=== PATIENT | male | born 1980 | race Caucasian/White ===

== ENCOUNTER 2017-01-15 19:06 | Emergency (ER) | payer BC ==
[2017-01-15] MEDS ORDERED: Azithromycin 250 MG Tab PO ONE (19:31)
[2017-01-15] MEDS ORDERED: Ibuprofen 800 MG Tab PO ONE (19:31)
--- NOTE | 2017-01-15 19:39 | EDM.PDOC ---
ED HPI GENERAL MEDICAL PROBLEM - General Chief Complaint: ENT Problem Stated Complaint: PT HAS EAR INFECTION Time Seen by Provider: 01/15/17 19:32 Source of Information: Reports: Patient History Limitations: Reports: No Limitations - History of Present Illness INITIAL COMMENTS - FREE TEXT/NARRATIVE: HISTORY AND PHYSICAL: History of present illness: LC 36-year-old male complaining of right earache 1 day. He has a swollen lymph node below dear. No headache or stiff neck. No fevers chills sweats or shaking chills. Is otherwise asymptomatic [] Review of systems: As per history of present illness and below otherwise all systems reviewed and negative. Past medical history: As per history of present illness and as reviewed below otherwise noncontributory. Surgical history: As per history of present illness and as reviewed below otherwise noncontributory. Social history: No reported history of drug or alcohol abuse. Family history: As per history of present illness and as reviewed below otherwise noncontributory. Physical exam: HEENT: Atraumatic, normocephalic, pupils reactive, negative for conjunctival pallor or scleral icterus, mucous membranes moist, throat clear, neck supple, nontender, trachea midline. Lungs: Clear to auscultation, breath sounds equal bilaterally, chest nontender. Heart: S1S2, regular, negative for clicks, rubs, or JVD. Abdomen: Soft, nondistended, nontender. Negative for masses or hepatosplenomegaly. Negative for costovertebral tenderness. Pelvis: Stable nontender. Genitourinary: Deferred. Rectal: Deferred. Extremities: Atraumatic, negative for cords or calf pain. Neurovascular unremarkable. Neuro: Awake, alert, oriented. Cranial nerves Exam nonfocal. Diagnostics: [] Therapeutics: [Zithromax and ibuprofen] Impression: [Otitis media] Plan: [Signs and symptoms consistent with otitis media in a well-appearing patient with supple neck and a single cervical lymph node infra-auricular. Well- appearing unremarkable vital signs. Zithromax given in ED and prescribed patient take Motrin and Tylenol and follow-up with PCP and ENT as needed. Further work up or treatment indicated he agrees with outpatient follow-up and strict return precautions given Definitive disposition and diagnosis as appropriate pending reevaluation and review of above. Right Ear Pain Score (Numeric/FACES): 3 - Related Data Allergies Allergy/AdvReac Type Severity Reaction Status Date / Time No Known Allergies Allergy Verified 01/15/17 19:23 Home Meds: Home Meds Azithromycin [IJP: Azithromycin] 250 mg PO DAILY #6 tab 01/15/17 [Rx] Past Medical History - Past Health History Medical/Surgical History: Denies Medical/Surgical History Cardiovascular History: Reports: Hypertension - Past Surgical History Cardiovascular Surgical History: Reports: None Social & Family History - Family History Family Medical History: Noncontributory - Tobacco Use Smoking Status *Q: Never Smoker Second Hand Smoke Exposure: No - Caffeine Use Caffeine Use: Reports: Coffee Caffeine Use Comment: 1cup/dasy - Recreational Drug Use Recreational Drug Use: No ED ROS GENERAL - Review of Systems Review Of Systems: See Below (History of present illness) ED EXAM, GENERAL - Physical Exam Exam: See Below (History of present illness) Course - Vital Signs Last Recorded V/S: Last Vital Signs Temp 36.5 C 01/15/17 19:20 Pulse 67 01/15/17 19:20 Resp 18 01/15/17 19:20 BP 162/98 H 01/15/17 19:20 Pulse Ox 98 01/15/17 19:20 - Orders/Labs/Meds Orders: Active Orders 24 hr Category Date Time Status Azithromycin [Zithromax] Med 01/15/17 19:31 Once 500 mg PO ONETIME ONE Ibuprofen [Motrin] Med 01/15/17 19:31 Once 800 mg PO ONETIME ONE Medication Orders Azithromycin (Zithromax) 500 mg PO ONETIME ONE Stop: 01/15/17 19:32 Meds: Medications Generic Name Dose Route Start Last Admin Trade Name Saundra PRN Reason Stop Dose Admin Azithromycin 500 mg 01/15/17 19:31 Zithromax PO 01/15/17 19:32 ONETIME ONE Departure - Departure Time of Disposition: 19:34 Disposition: Home, Self-Care 01 Condition: Good Clinical Impression: Otitis media - Discharge Information Referrals: PCP,None [Primary Care Provider] - Forms: ED Department Discharge Additional Instructions: You have a middle ear infection. This is called otitis media. The requires antibiotics to cure it. Finish Zithromax as prescribed starting tomorrow. You' ve been given a dose for today already. Take ibuprofen 800 mg every 6 hours and take Tylenol every 4 hours as needed for pain. Follow-up with your in one to 2 days and return immediately for new severe or worsening symptoms. If your symptoms do not improve your doctor can refer you to an ear nose and throat doctor for reevaluation and further workup and treatment as needed. - My Orders Last 24 Hours: My Active Orders 01/15/17 19:31 Azithromycin [Zithromax] 500 mg PO ONETIME ONE Ibuprofen [Motrin] 800 mg PO ONETIME ONE - Assessment/Plan Last 24 Hours: My Active Orders 01/15/17 19:31 Azithromycin [Zithromax] 500 mg PO ONETIME ONE Ibuprofen [Motrin] 800 mg PO ONETIME ONE
[2017-01-15 19:56] VITALS: BP 157/88
== END 2017-01-15 19:56 | disposition home or self-care (01) ==
LOC: MW.ED 19:06
DX: H66.91 Otitis media, unspecified, right ear (principal); I10 Essential (primary) hypertension
CPT/HCPCS: 99282; A9270